=== PATIENT | female | born 1990 | race Caucasian/White ===

== ENCOUNTER 2023-03-02 13:08 | Outpatient (REF) | payer OTHER, SELFPAY ==
--- NOTE | 2023-03-02 11:45 | ENDOMET_PTH ---
PATIENT: SUMMER HARRISON LOC: [facility] U#:[id number] AGE/SX: 32/F ROOM: RE03/02/[address]: Lauryn Alas MD : 1990 BED: DIS: 03/02/2023 SPEC #: [id number] RECD: 03/02/23 13:18 STATUS: OLEKSANDR RERoyce #: [id number] SANDRO: 03/02/23 11:[address]: Lauryn Alas DEPT: Surgical Specimen RECD BY: Josee Holland Tissues: 1 - ENDOMETRIUM BX/RALPH Procedures: GROSS AND MICRO LEVEL 4 Comments: [id number]
== END 2023-03-02 13:09 | disposition home or self-care (01) ==
LOC: LBN 13:08
PROVIDERS: Visit Provider Obstetrics & Gynecology
DX: N85.01 Benign endometrial hyperplasia (principal); N93.8 Other specified abnormal uterine and vaginal bleeding
CPT/HCPCS: 88305